=== PATIENT | female | born 1960 | race Caucasian/White ===

== ENCOUNTER 2021-04-04 18:31 | Emergency (ER) | payer OTHER ==
[2021-04-04 18:42] VITALS: TEMP 97; BMI 29.5
[2021-04-04] MEDS ORDERED: ACETAMINOPHEN 325 MG TABLET (FP) PO PRN (20:10)
[2021-04-04 20:54] LABS: BASO % 0.3 % (0-2.0); EOS % 1.8 % (0-4.5); HEMATOCRIT 42.7 % (32.4-45.2); HEMOGLOBIN 14.3 GM/dL (10.7-15.3); LYMPH % 15.8 % (8-40); MCH 28.8 pg (25.7-33.7); MCHC 33.5 g/dl (32.0-36.0); MEAN CELL VOLUME 85.9 fl (80-96); MEAN PLT VOLUME 9.4 fl (7.5-11.1); MONO % 6.1 % (3.8-10.2); PLATELET COUNT 316 10^3/uL (134-434); RBC 4.97 M/mm3 (3.60-5.2); RDW 14.8 % (11.6-15.6); WHITE BLOOD COUNT 9.8 K/mm3 (4.0-10.0)
[2021-04-04 21:12] LABS: CHLORIDE 105 mmol/L (98-107); SODIUM 139 mmol/L (136-145)
[2021-04-04 21:14] LABS: ALBUMIN 4.3 g/dl (3.4-5.0); CALCIUM 9.6 mg/dL (8.5-10.1)
[2021-04-04 21:15] LABS: ANION GAP 9 MMOL/L (8-16); CO2 26 mmol/L (21-32); GLUCOSE,RANDOM 96 mg/dL (74-106)
[2021-04-04 21:17] LABS: SGPT/ALT 31 U/L (13-61)
[2021-04-04 21:18] LABS: CREATININE 0.8 mg/dL (0.55-1.3); SGOT/AST 16 U/L (15-37)
[2021-04-04 21:19] LABS: BILIRUBIN,TOTAL 0.5 mg/dL (0.2-1); TOT PROT 7.9 g/dl (6.4-8.2)
[2021-04-04 21:20] LABS: ALK PHOS 70 U/L (45-117)
[2021-04-04 21:40] LABS: INR 1.02 (0.83-1.09); PROTHROMBIN TIME (PATIENT) 12.3 SEC (9.7-13.0)
[2021-04-04 21:43] LABS: ACTIVATED PTT 39.6 SECONDS (25.2-36.5)
[2021-04-04 23:24] VITALS: BP 160/88; PULSE 68
== END 2021-04-05 00:41 | disposition home or self-care (01) ==
LOC: JER 18:31
DX: S39.012A Strain of muscle, fascia and tendon of lower back, initial encounter (principal)
CPT/HCPCS: 36415; 70450-TC; 71260-TC; 72125-TC; 74177-TC; 80053; 82550; 84484; 85025; 85610; 85730; 86850; 86900; 86901; 93005; 93010; 99284-25; Q9967